=== PATIENT | female | born 1970 | race Caucasian/White ===

== ENCOUNTER 2020-04-18 17:25 | Emergency (ER) | payer BC ==
[2020-04-18] MEDS ORDERED: BAMLANIVIMAB 700 MG in SODIUM CHLORIDE 180 ML IVPB ONE (17:45)
[2020-04-18 18:27] VITALS: TEMP 98.6; BMI 42.0
[2020-04-18] MEDS ORDERED: BAMLANIVIMAB 700 MG in SODIUM CHLORIDE 250 ML IVPB ONE (18:30)
[2020-04-18 20:23] LABS: HEMATOCRIT 36.6 % (32.4-45.2); HEMOGLOBIN 12.2 GM/dL (10.7-15.3); MCH 26.7 pg (25.7-33.7); MCHC 33.3 g/dl (32.0-36.0); MEAN CELL VOLUME 80.4 fl (80-96); MEAN PLT VOLUME 9.6 fl (7.5-11.1); PLATELET COUNT 184 K/MM3 (134-434); RBC 4.55 M/mm3 (3.60-5.2); RDW 14.9 % (11.6-15.6)
[2020-04-18 21:01] LABS: POTASSIUM 3.8 mmol/L (3.5-5.1)
[2020-04-18 21:03] LABS: BLOOD UREA NITROGEN 12.4 mg/dL (7-18)
[2020-04-18 21:06] LABS: CREATININE 0.9 mg/dL (0.55-1.3)
[2020-04-18 22:10] VITALS: BP 139/75; PULSE 97
== END 2020-04-18 22:10 | disposition home or self-care (01) ==
LOC: JER 17:25
DX: U07.1 COVID-19 (principal)
CPT/HCPCS: 36415; 80048; 85027; 99284-25; M0239; Q0239